=== PATIENT | male | born 1945 | race Caucasian/White ===

== ENCOUNTER 2017-06-07 09:00 | Outpatient (RCR) | payer MEDICARE, OTHER ==
[2017-05-24 13:12] VITALS: BP 132/68
[2017-05-24 13:13] VITALS: BP 136/78
[2017-05-31 13:15] VITALS: BP 122/78
[2017-05-31 13:16] VITALS: BP 138/70
[2017-06-02 18:07] VITALS: BP 142/84
[2017-06-02 18:08] VITALS: BP 134/72
[~2017-06-07 09:00] MED LIST: ASPI-715 PO; ASPI81TA94 PO; ATOR-1 PO; ATOR10TA24 PO; CEP500 PO; CEPH500T7 PO; FAMO-67 PO; FAMO20TA28 PO; LEVO100T95 PO; LEVO75TA68 PO; LEVO88TA43 PO; LOR5 PO; METO25TA23 PO; MULT1CAP41 PO; OXYC-854 PO; OXYC-865 PO; PRE20 PO; TICA90TA PO; VINP1POW MC; [UNRECOGNIZED DRUG - CODE] PO; [UNRECOGNIZED DRUG - OTHER] PO
== END 2017-06-07 15:33 | disposition home or self-care (01) ==
LOC: CARD 09:00
PROVIDERS: ATTEND Internal Medicine
DX: Z48.812 Encounter for surgical aftercare following surgery on the circulatory system (principal); I25.2 Old myocardial infarction; Z95.5 Presence of coronary angioplasty implant and graft; Z96.643 Presence of artificial hip joint, bilateral; S93.402A Sprain of unspecified ligament of left ankle, initial encounter; X58.XXXA Exposure to other specified factors, initial encounter
CPT/HCPCS: 93798

== ENCOUNTER 2017-10-04 09:00 | Outpatient (RCR) | payer MEDICARE, OTHER ==
--- NOTE | 2017-07-13 09:39 | PT INITIAL EVALUATION ---
MEDICAL DIAGNOSIS: Trigger finger, right index finger (M65.321), trigger finger , right middle TREATMENT DIAGNOSIS: same DATE OF ONSET: 06/28/17 SUBJECTIVE: Wojciech Torrez presents to physical therapy with complaints of trigger finger in the right index and middle finger that started around the June. 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 However, over the years, the thumbs have gotten better and no longer bother him even though they have zero cartilage remaining. He reports that he received an injection that lasted only two days. Furthermore, he reports that he continues to have swelling and inflammation around the insertional points of the flexor digitorum profundus and superficialis. He reports that the pain is minimal and feels more like stiffness. He reports that the pain or stiffness becomes worse with squeezing balls and utilizing his R hand. Furthermore, he reports that nothing currently makes the hand feel better. Pain location is insertional points of digitorum profundus and superficialis and described as more stiffness than pain. Pain scale is 1 on a ten point pain scale. 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 ROM: Decreased extension with 2nd and 3rd phalanges associated with painful end feel. Phalanges 1st, 4th, and 5th flexion (proximal/distal along with MCP) : full with normal end feels Strength: Gross security system engineer strength: R: 70#, 75#, 90#, L: 90#, 100#, 100# Pinch: R: 19#, 19#, 18#, L: 18#, 18#, 17# 3 pinch: R: 19#, 18#, 20#, L: 21#, 20#, 21# Palpation: TTP over the insertional points of digitorum profundus and superficialis along with the lumbricals Special Tests: Fine motor/coordination: R: 15 sec, 15.58 sec, 12.11 sec. L: 14 sec, 12.05 sec, 12.56 sec. R/L hand joint mobility equal within all joints Mobility: Independent Gait: Independent with normal gait mechanics ASSESSMENT: Wojciech will benefit from skilled physical therapy to address the listed impairments to improve function and QOL. Based on today's examination, it appears that he has developed extension dysfunction that will require continued loads every 3 hours into extension to fully remodel the tissues in order to relieve these signs and symptoms and usually this remodeling process takes approximately 6-18 weeks depending on how the direction is followed. Short Term Goals 6 weeks: Pt will improve gross security system engineer strength with R hand equal to the L hand to improve function and QOL. 18 weeks: Pt will demonstrate improved length and remodel of tendons of flexor digitorum profundus and superficialis along with the lumbricals to abolish pain and improve function and QOL. Patient's Goals reduce pain and improve function of hand PLAN: Patient to be seen for Manual Therapy/STM/MET Strengthening/condition Range of Motion Spinal Stabilization Ultrasound Work Hardening/Cond Stretching Iontophoresis Neuromuscular Re-ed Closed Chain Program Home Exercise Program Therapeutic Activities 1-2/weeks for 4 Months If you have any questions, comments, or concerns about this report or plan, please contact me at . Thank you, Torito Rosas, PT, DPT NIC
[~2017-10-04 09:00] MED LIST changes: +CLOP75TA PO; +ROSU40TA18 PO
== END 2017-10-10 ==
LOC: PT 09:00
PROVIDERS: ATTEND Orthopaedic Surgery Hand Surgery
DX: M65.321 Trigger finger, right index finger (principal); M65.331 Trigger finger, right middle finger; M19.041 Primary osteoarthritis, right hand; M19.042 Primary osteoarthritis, left hand
CPT/HCPCS: 97162

== ENCOUNTER 2017-12-27 09:00 | Outpatient (RCR) | payer MEDICARE, OTHER ==
--- NOTE | 2017-10-12 14:22 | PT PLAN OF CARE ---
Physician: Wojciech Bro MD Patient is being seen: 1x/week Therapist: Torito Rosas, PT, DPT Medical Diagnosis: Trigger finger, right index finger (M65.321), trigger finger , right middle Treatment Diagnosis: same Date of Onset: 06/28/17 Date of Initial Evaluation: 07/12/17 Date patient was last seen: 10/11/17 Number of treatments: 10 Number of cancellations/No shows: 2 INTERVENTIONS: Manual Therapy/STM/MET Strengthening/condition Range of Motion Spinal Stabilization Ultrasound Work Hardening/Cond Stretching Iontophoresis Neuromuscular Re-ed Closed Chain Program Home Exercise Program Therapeutic Activities GOALS: 6 weeks: Pt will improve gross tour escort strength with R hand equal to the L hand to improve function and QOL. Progressing 18 weeks: Pt will demonstrate improved length and remodel of tendons of flexor digitorum profundus and superficialis along with the lumbricals to abolish pain and improve function and QOL. : Progressing PATIENT'S GOAL: reduce pain and improve function of hand Status of Patient's Goals: Progressing Patient Compliance: Good Prognosis: Good Reasons for continuing therapy: This is a progress note for Wojciech Torrez. Wojciech reports that he continues to have his good days and his bad days. He reports that he continues to have a nodule on anterior portion below his 3rd digit, but feels like it has gotten smaller over the last week. He reports that he continues to stretch his 2nd and 3rd digits into extension 4-5 times per day. He reports that he has tried to limit overuse of his 2nd and 3rd digits as well. He demonstrated improvements with PROM-AROM with his 2nd and 3rd digits into extension with improved end feel. He demonstrated improvements with decreased adhesions/fibrosis along anterior 2nd and 3rd digits; and decreased size of nodule inferior to 3rd digit. He also demonstrated improvements with L hand tour escort strength and reduced pain while testing along with increased fine motor of his L hand. He continues to be independent on his stretching. He demonstrated minimal to no hypomobility within his hand. We will continue to improve PROM-AROM, reduce adhesions, and return to prior level of function Posture: He demonstrated forward head, B rounded shoulders, increased thoracic kyphosis, and decreased lumbar lordosis. ROM: Decreased extension with 2nd and 3rd phalanges associated with painful end feel. Phalanges 1st, 4th, and 5th flexion (proximal/distal along with MCP) : full with normal end feels Strength: Gross tour escort strength: R: 80#, 85#, 90#, L: 90#, 100#, 100# Pinch: R: 19#, 19#, 18#, L: 18#, 18#, 17# 3 pinch: R: 19#, 18#, 20#, L: 21#, 20#, 21# Palpation: TTP over the insertional points of digitorum profundus and superficialis along with the lumbricals Special Tests: Fine motor/coordination: R: 15 sec, 15.58 sec, 12.11 sec. L: 14 sec, 13.05 sec, 12.56 sec. R/L hand joint mobility equal within all joints Mobility: Independent If you have any questions, please contact me at [phone]. Thank you, Torito Rosas, PT, DPT [facility]
== END 2018-01-09 ==
LOC: PT 09:00
PROVIDERS: ATTEND Orthopaedic Surgery Hand Surgery
DX: M65.321 Trigger finger, right index finger (principal); M65.331 Trigger finger, right middle finger; M19.041 Primary osteoarthritis, right hand; M19.042 Primary osteoarthritis, left hand

== ENCOUNTER 2018-03-28 08:53 | Outpatient (RCR) | payer MEDICARE, OTHER ==
--- NOTE | 2018-01-25 13:49 | PT PLAN OF CARE ---
Physician: Wojciech Bro MD Patient is being seen: 1-2x/week Therapist: Torito Rosas, PT, DPT Medical Diagnosis: Trigger finger, right index finger (M65.321), trigger finger, right middle Treatment Diagnosis: same Date of Onset: 06/28/17 Date of Initial Evaluation: 07/12/17 Date patient was last seen: 01/24/18 Number of treatments: 15 Number of cancellations/No shows: 2 INTERVENTIONS: Manual Therapy/STM/MET Strengthening/condition Range of Motion Spinal Stabilization Ultrasound Work Hardening/Cond Stretching Iontophoresis Neuromuscular Re-ed Closed Chain Program Home Exercise Program Therapeutic Activities GOALS: 6 weeks: Pt will 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 18 weeks: Pt will demonstrate improved length and remodel of tendons of flexor digitorum profundus and superficialis along with the lumbricals to abolish pain and improve function and QOL. PATIENT'S GOAL: reduce pain and improve function of hand Status of Patient's Goals: Progressing Patient Compliance: Good Prognosis: Good Reasons for continuing therapy:This is a progress note for Wojciech Shan. He reports that the base of his 2nd and 3rd fingers are doing well along with the adhesions is almost completely resolved. He reports that he no longer has any pain in those areas. He reports minimal discomfort on his proximal and distal (posterior side) that he would like to address. Otherwise, he feels like his other injuries have made a full recovery. He has demonstrated full 2nd and 3rd digits (on the anterior side) flexion and extension with normal end feels. He demonstrated a significant reduction of extension with his 2nd and 3rd distal joint that we will continue to address and return to prior level of function. Posture: He demonstrated forward head, B rounded shoulders, increased thoracic kyphosis, and decreased lumbar lordosis. ROM: Normal extension with 2nd and 3rd phalanges associated with normal end feel. Phalanges 1st, 4th, and 5th flexion (proximal/distal along with MCP): full with normal end feels Strength: Gross residential energy auditor strength: R: 80#, 85#, 90#, L: 90#, 100#, 100# Pinch: R: 19#, 19#, 18#, L: 18#, 18#, 17# 3 pinch: R: 19#, 18#, 20#, L: 21#, 20#, 21# Palpation: TTP over the insertional points of digitorum profundus and superficialis along with the lumbricals Special Tests: Fine motor/coordination: R: 15 sec, 15.58 sec, 12.11 sec. L: 14 sec, 13.05 sec, 12.56 sec. R/L hand joint mobility equal within all joints Mobility: Independent If you have any questions, please contact me at [phone]. Thank you, Torito Rosas, PT, DPT [facility]
== END 2018-04-24 ==
LOC: PT 08:53
PROVIDERS: ATTEND Orthopaedic Surgery Hand Surgery
DX: M65.321 Trigger finger, right index finger (principal); M65.331 Trigger finger, right middle finger; M19.041 Primary osteoarthritis, right hand; M19.042 Primary osteoarthritis, left hand

== ENCOUNTER 2018-04-25 09:00 | Outpatient (RCR) | payer MEDICARE, OTHER ==
--- NOTE | 2018-04-25 11:34 | PT INITIAL EVALUATION ---
Physician: Wojciech Bro MD Patient is being seen: 1-2x/week Therapist: Torito Rosas, PT, DPT Medical Diagnosis: Trigger finger, right index finger (M65.321), trigger finger, right middle Treatment Diagnosis: same Date of Onset: 06/28/17 Date of Initial Evaluation: 07/12/17 Date patient was last seen: 04/25/18 Number of treatments: 18 Number of cancellations/No shows: 2 INTERVENTIONS: Manual Therapy/STM/MET Strengthening/condition Range of Motion Spinal Stabilization Ultrasound Work Hardening/Cond Stretching Iontophoresis Neuromuscular Re-ed Closed Chain Program Home Exercise Program Therapeutic Activities GOALS: 6 weeks: Pt will improve gross licensed 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 18 weeks: Pt will demonstrate improved length and remodel of tendons of flexor digitorum profundus and superficialis along with the lumbricals to abolish pain and improve function and QOL. PATIENT'S GOAL: reduce pain and improve function of hand Status of Patient's Goals: Progressing Patient Compliance: Good Prognosis: Good Reasons for continuing therapy: This is a progress note for Wojciech Torrez. He reports that the base of his 2nd and 3rd fingers are doing well along with the adhesions is almost completely resolved. He reports that his anterior hand is doing well; however, he continues to have muscular pain on the posterior phalanges from MCP to PIP to DIP that requires continually movement and states that he cannot keep it still. He demonstrates full 2nd and 3rd PIP, DIP, and MCP without any end range pain; however, he continues to have pain with 2nd and 3rd PIP, DIP, MCP on the posterior side and pain increases with increased flexion. As a result, he was given a specific exercise to stretch into flexion every 3 hours to see if the muscle properties will be changed like his anterior side so that the pain will be reduced and he will return to prior level of function. However, I am not sure why he is unable to keep his finger in a static position. We will continue to improve and return to prior level of function. Posture: He demonstrated forward head, B rounded shoulders, increased thoracic kyphosis, and decreased lumbar lordosis. ROM: Normal extension with 2nd and 3rd phalanges associated with normal end feel. Phalanges 1st, 4th, and 5th flexion (proximal/distal along with MCP): full with normal end feels Strength: Gross licensed midwife strength: R: 80#, 85#, 90#, L: 90#, 100#, 100# Pinch: R: 19#, 19#, 18#, L: 18#, 18#, 17# 3 pinch: R: 19#, 18#, 20#, L: 21#, 20#, 21# Palpation: TTP over the insertional points of digitorum profundus and superficialis along with the lumbricals Special Tests: Fine motor/coordination: R: 15 sec, 15.58 sec, 12.11 sec. L: 14 sec, 13.05 sec, 12.56 sec. R/L hand joint mobility equal within all joints Mobility: Independent If you have any questions, please contact me at [phone]. Thank you, Torito Rosas, PT, DPT [facility]
== END 2018-04-25 18:00 | disposition home or self-care (01) ==
LOC: PT 09:00
PROVIDERS: ATTEND Orthopaedic Surgery Hand Surgery
DX: M65.321 Trigger finger, right index finger (principal); M65.331 Trigger finger, right middle finger